=== PATIENT | male | born 1975 | race Caucasian/White ===

== ENCOUNTER 2018-11-04 12:39 | Outpatient (CLI) | payer BC ==
[~2018-11-04] VITALS: Ht 180.3 cm; Wt 116.7 kg
[2018-11-04] MEDS ORDERED: PANT40TA2 PO (12:55)
[2018-11-04 12:58] VITALS: BP 150/97
[2018-11-04 13:33] LABS: BASOPHILS % (AUTO) 0 % (0-10); EOSINOPHILS # (AUTO) 0.1 10^3/uL (0.0-0.3); EOSINOPHILS % (AUTO) 1 % (0-10); HEMATOCRIT 45 % (40-54); HEMOGLOBIN 15.3 G/DL (13.3-17.7); LYMPHOCYTES # (AUTO) 2.1 X 10^3 (1.0-4.0); LYMPHOCYTES % (AUTO) 21 % (12-44); MEAN CORPUSCULAR HEMOGLOBIN 32 PG (25-34); MEAN CORPUSCULAR HGB CONC 34 G/DL (32-36); MEAN CORPUSCULAR VOLUME 94 FL (80-99); MEAN PLATELET VOLUME 11.5 FL (7.4-10.4); MONOCYTES # (AUTO) 0.8 X 10^3 (0.0-1.0); MONOCYTES % (AUTO) 8 % (0-12); NEUTROPHILS # (AUTO) 6.8 X 10^3 (1.8-7.8); NEUTROPHILS % (AUTO) 69 % (42-75); PLATELET COUNT 264 10^3/uL (130-400); RED BLOOD COUNT 4.79 10^6/uL (4.35-5.85); RED CELL DISTRIBUTION WIDTH 13.3 % (10.0-14.5); WHITE BLOOD COUNT 9.8 10^3/uL (4.3-11.0)
[2018-11-04 13:50] LABS: BUN/CREATININE RATIO 11; CALCIUM 9.4 MG/DL (8.5-10.1); CARBON DIOXIDE 21 MMOL/L (21-32); CHLORIDE 106 MMOL/L (98-107); GFR ESTIMATED > 60; GLUCOSE 87 MG/DL (70-105); POTASSIUM 3.7 MMOL/L (3.6-5.0); SODIUM 138 MMOL/L (135-145)
== END 2018-11-04 15:00 | disposition home or self-care (01) ==
LOC: PREOP 12:39
PROVIDERS: ATTEND Otolaryngology Otolaryngology/Facial Plastic Surgery
DX: Z01.812 Encounter for preprocedural laboratory examination (principal); Z11.2 Encounter for screening for other bacterial diseases; J34.89 Other specified disorders of nose and nasal sinuses
CPT/HCPCS: 36415; 80048; 85025; 87081; 93005

== ENCOUNTER 2018-11-11 09:10 | Day surgery (SDC) | payer BC ==
[~2018-11-11] VITALS: Ht 180.3 cm; Wt 116.7 kg
[~2018-11-11 09:10] MED LIST: PANT40TA2 PO
[2018-11-11 09:25] VITALS: BP 148/96
[2018-11-11] MEDS: LACTATED RINGERS 1,000 ML IV PRN ×2 (10:30→14:50)
--- NOTE | 2018-11-11 11:36 | Progress Note-Pre Operative ---
Pre-Operative Progress Note H&P Reviewed The H&P was reviewed, patient examined and no changes noted. Date Seen by Provider: Nov 11, 2018 Time Seen by Provider: 11: Date H&P Reviewed: Nov 11, 2018 Time H&P Reviewed: :30 Pre-Operative Diagnosis: Deviated Nasal Septum, Bilat hyper of Inf Turbs TRENTON UNGER MD Nov 11, 2018 11:36
[2018-11-11] MEDS ORDERED: PHENYLEPHRINE 0.5% NASAL SPR (NEO-SYNEPHRINE) REG ONE (11:38)
[2018-11-11] MEDS ORDERED: COCAINE HCL 4% 2 ML SYR ONE (11:38)
[2018-11-11] MEDS ORDERED: LIDOCAINE/EPI 1%-1:100,000 (XYLOCAINE) 20ML ONE ×2 (11:38→11:42)
[2018-11-11] MEDS ORDERED: BSS 15 ML ONE (11:38)
[2018-11-11] MEDS ORDERED: DEXAMETHASONE 10 MG/ML (DECADRON) 1 ML VIAL ONE (12:30)
[2018-11-11] MEDS ORDERED: proPOfol 200 MG/20 ML (DIPRIVAN) VIAL IV ONE (12:30)
[2018-11-11] MEDS ORDERED: ROCURONIUM 10 MG/ML 5 ML SYRINGE IV ONE (12:30)
[2018-11-11] MEDS ORDERED: SEVOFLURANE (ULTANE) 15 ML INHAL SOLN ONE (12:30)
[2018-11-11] MEDS ORDERED: LIDOCAINE PF 2% 5 ML (XYLOCAINE) VIAL ONE (12:30)
[2018-11-11] MEDS ORDERED: ONDANSETRON 4 MG/2 ML (SDV) Z0FRAN ONE (12:30)
[2018-11-11] MEDS ORDERED: fentaNYL INJECTION 100 MCG/2 ML AMP ONE (12:31)
[2018-11-11] MEDS ORDERED: MIDAZOLAM 2 MG/2 ML (VERSED) VIAL ONE (12:31)
[2018-11-11] MEDS ORDERED: GLYCOPYRROLATE 0.2 MG/ML (ROBINUL) 2 ML VIAL ONE (13:38)
[2018-11-11] MEDS ORDERED: NEOSTIGMINE 1 MG/ML 5 ML SYRINGE ONE (13:38)
[2018-11-11] MEDS ORDERED: D5 1/2 NS W/KCL 20 MEQ/L 1,000 ML IV SCH (13:50)
--- NOTE | 2018-11-11 13:50 | Progress Note-Post Operative ---
Post-Operative Progess Note Surgeon (s)/Mechanical Test Engineer (s) Surgeon TRENTON UNGER MD Mechanical Test Engineer n/a Pre-Operative Diagnosis Deviated Nasal Septum, Bilat hyper of Inf Turbs Post-Operative Diagnosis same Post-Op Procedure Note Date of Procedure: Nov 11, 2018 Name of Procedure Performed: Nasal Septoplasty Description & Findings Description and Findings: n/a Anesthesia Type get Estimated Blood Loss minimal Packing none. Specimen(s) collected/removed nasal septum TRENTON UNGER MD Nov 11, 2018 13:50
[2018-11-11] MEDS ORDERED: ACETAMINOPHEN 325 MG TABLET PO PRN (14:00)
[2018-11-11] MEDS ORDERED: PROMETHAZINE INJ 25 MG/ML (PHENERGAN) AMP IVP ONE (14:00)
[2018-11-11] MEDS ORDERED: HYDROmorphone 2 MG/ML VIAL (DILAUDID) IV ONE (14:00)
[2018-11-11] MEDS ORDERED: HYDROcodone/APAP 5 MG/325 MG (LORTAB) TAB PO PRN (14:00)
[2018-11-11] MEDS ORDERED: PROMETHAZINE INJ 25 MG/ML (PHENERGAN) AMP IVP PRN (14:00)
[2018-11-11] MEDS ORDERED: morphine INJ 10 MG/ML 1ML (SYR OR VIAL) IVP ONE (14:00)
[2018-11-11] MEDS ORDERED: MEPERIDINE (DEMEROL) INJ 50 MG/ML IVP ONE (14:00)
[2018-11-11] MEDS ORDERED: ONDANSETRON 4 MG/2 ML (SDV) Z0FRAN IVP PRN (14:00)
[2018-11-11] MEDS ORDERED: LACTATED RINGERS 1,000 ML IV ONE (14:29)
--- NOTE | 2018-11-11 14:35 | Anesthesia-General Post-Op ---
General Patient Condition Mental Status/LOC: Same as Preop Cardiovascular: Satisfactory Nausea/Vomiting: Absent Respiratory: Satisfactory Pain: Controlled Complications: Absent Post Op Complications Complications None Follow Up Care/Instructions Patient Instructions None needed. Anesthesia/Patient Condition Patient Condition Patient is doing well, no complaints, stable vital signs, no apparent adverse anesthesia problems. No complications reported per nursing. [place] [facility] Yes AFSHIN WHITE CRNA Nov 11, 2018 14:35
[2018-11-11 14:55] VITALS: BP 136/87
[2018-11-11] MEDS ORDERED: AMOX500T2 PO (15:15)
[2018-11-11] MEDS ORDERED: HYDR-3812 PO (15:15)
[2018-11-11 15:25] VITALS: BP 130/86
[2018-11-11 15:55] VITALS: BP 138/86
== END 2018-11-11 15:55 | disposition home or self-care (01) ==
LOC: SDC 09:10
PROVIDERS: ATTEND Otolaryngology Otolaryngology/Facial Plastic Surgery
DX: J34.2 Deviated nasal septum (principal); J34.3 Hypertrophy of nasal turbinates; G47.33 Obstructive sleep apnea (adult) (pediatric); K21.9 Gastro-esophageal reflux disease without esophagitis; E66.9 Obesity, unspecified; Z68.35 Body mass index [BMI] 35.0-35.9, adult

== ENCOUNTER 2020-01-04 09:53 | Emergency (ER) | payer BC ==
[~2020-01-04] VITALS: Ht 180 cm; Wt 127.0 kg
[~2020-01-04 09:53] MED LIST changes: +AMOX500T2 PO; +HYDR-3812 PO
[2020-01-04 10:15] LABS: BASOPHILS % (AUTO) 0 % (0-10); EOSINOPHILS # (AUTO) 0.1 10^3/uL (0.0-0.3); EOSINOPHILS % (AUTO) 1 % (0-10); HEMATOCRIT 47 % (40-54); LYMPHOCYTES # (AUTO) 2.8 X 10^3 (1.0-4.0); LYMPHOCYTES % (AUTO) 27 % (12-44); MEAN CORPUSCULAR HEMOGLOBIN 32 PG (25-34); MEAN CORPUSCULAR HGB CONC 34 G/DL (32-36); MEAN CORPUSCULAR VOLUME 92 FL (80-99); MEAN PLATELET VOLUME 11.4 FL (7.4-10.4); MONOCYTES # (AUTO) 0.9 X 10^3 (0.0-1.0); MONOCYTES % (AUTO) 8 % (0-12); NEUTROPHILS # (AUTO) 6.6 X 10^3 (1.8-7.8); NEUTROPHILS % (AUTO) 63 % (42-75); PLATELET COUNT 263 10^3/uL (130-400); RED CELL DISTRIBUTION WIDTH 12.8 % (10.0-14.5); WHITE BLOOD COUNT 10.4 10^3/uL (4.3-11.0)
[2020-01-04] MEDS ORDERED: ASPIRIN 81 MG CHEW (CHILDREN'S ASA) PO ONE (10:15)
[2020-01-04 10:28] LABS: INR 0.9 (0.8-1.4); PROTHROMBIN TIME PATIENT 12.7 SEC (12.2-14.7)
--- NOTE | 2020-01-04 10:35 | Diagnostic Imaging Report ---
Indication: Chest pain Portable chest 10:29 AM Heart size and pulmonary vascularity are normal. Lungs are clear. There are no effusions or pneumothoraces. IMPRESSION: Negative chest Dictated by: Dictated on workstation # [id number]
[2020-01-04 10:36] LABS: ALANINE AMINOTRANSFERASE 75 U/L (0-55); ALBUMIN 4.3 GM/DL (3.2-4.5); ALKALINE PHOSPHATASE 71 U/L (40-136); BILIRUBIN,TOTAL 0.3 MG/DL (0.1-1.0); BUN/CREATININE RATIO 11; CALCIUM 9.3 MG/DL (8.5-10.1); CARBON DIOXIDE 26 MMOL/L (21-32); CHLORIDE 102 MMOL/L (98-107); CREATININE SERUM 1.14 MG/DL (0.60-1.30); GFR ESTIMATED > 60; GLUCOSE 117 MG/DL (70-105); POTASSIUM 3.7 MMOL/L (3.6-5.0); SODIUM 138 MMOL/L (135-145); TOTAL PROTEIN 7.7 GM/DL (6.4-8.2)
--- NOTE | 2020-01-04 10:41 | ED Chest Pain ---
General Chief Complaint: Chest Pain Stated Complaint: CHEST PAIN Nursing Triage Note: ARRIVED VIA AMB TO TRIAGE WITH COMPLAINTS OF CHEST PAIN STARTING THIS AM. STATE HE FELT HIS HEART POUNDING. VERBALIZES IT HAS BEEN OFF AND ON FOR 2 WEEKS ET WENT TO [facility] PRIOR TO TODAY AND HAD A NEG EKG. DENIES CHEST PAIN AT THIS TIME. Nursing Sepsis Screen: No Definite Risk Source: patient Exam Limitations: no limitations (JERMAINE VELÁZQUEZ MEDICAL STUDENT) History of Present Illness Date Seen by Provider: Jan 04, 2020 Time Seen by Provider: 10:20 Initial Comments Pt is 44 yo M who ambulates to the ED c/o squeezing CP that started about an hour before arrival. He is not currently having pain. He states the pain radiates half way across his left chest and he can feel his heartbeat with the squeezing sensation. He has had the pain off and on for several weeks and was evaluated at the [facility] two days ago on Wednesday. He had a negative EKG there and was scheduled for follow with Dr. Villa on 01/15/20. They also noted elevated BP at the walk-in clinic. He has was not placed on BP medication but has been checking his blood pressures at home; highest was 172/96 this morning. He has not taken anything for the pain. The CP seems to come on after eating. It does not seem to be affected by physical activity or movement. Although he doesn't smoke or have chronic medical problems he has extensive family history of cardiovascular disease on both sides of his family. 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 Timing/Duration: 1 hour, resolved prior to arrival Severity/Quality: moderate, other (squeezing) Location: substernal Radiation: other (left chest) Activities at Onset: other (post prandial) Prior CP/Workup: no prior cardiac workup Modifying Factors: worse with breathing, worse with coughing; improves with eating; worse with movement ASA po STAFF PHYSICIAN: No NTG SL STAFF PHYSICIAN: No Associated Symptoms: No diaphoresis, No dizziness; edema (has noted increased LE edema at end of day); No nausea/vomiting, No shortness of breath (JERMAINE VELÁZQUEZ MEDICAL STUDENT) Severity/Quality: moderate, pressure, other (squeezing) Location: substernal Radiation: other (left chest) ASA po STAFF PHYSICIAN: No NTG SL STAFF PHYSICIAN: No (VEGA,KEAGAN D MD) Allergies and Home Medications Allergies Coded Allergies: No Known Drug Allergies (Unverified , 11/04/18) Home Medications No Active Prescriptions or Reported Meds Patient Home Medication List Home Medication List Reviewed: Yes (JERMAINE VELÁZQUEZ) Home Medication List Reviewed: Yes (KEAGAN FERRARI MD) Review of Systems Review of Systems Constitutional: No chills, No diaphoresis, No dizziness, No weakness EENTM: No Symptoms Reported Respiratory: Denies Cough, Denies Shortness of Air Cardiovascular: Chest Pain, Edema; Denies Palpitations Gastrointestinal: Denies Abdominal Pain, Denies Diarrhea, Denies Nausea, Denies Vomiting Genitourinary: No Symptoms Reported Musculoskeletal: No muscle pain, No muscle stiffness Skin: no symptoms reported Psychiatric/Neurological: No Symptoms Reported Endocrine: No Symptoms Reported Hematologic/Lymphatic: No Symptoms Reported (JERMAINE VELÁZQUEZ) All Other Systems Reviewed Negative Unless Noted: Yes (KEAGAN FERRARI MD) Past Kfrgwvn-Egryqx-Dplnwx Hx Past Med/Social Hx: Reviewed Nursing Past Med/Soc Hx (JERMAINE VELÁZQUEZ) Past Med/Social Hx: Reviewed Nursing Past Med/Soc Hx (KEAGAN FERRARI MD) Patient Social History Alcohol Use: Denies Use Recreational Drug Use: No Smoking Status: Never a Smoker Recent Foreign Travel: No Contact w/Someone Who Travel: No Recent Infectious Disease Expo: No Recent Hopitalizations: No (JERMAINE VELÁZQUEZ) Immunizations Up To Date Tetanus Booster (TDap): Unknown PED Vaccines UTD: No (JERMAINE VELÁZQUEZ) Seasonal Allergies Seasonal Allergies: No (JERMAINE VELÁZQUEZ) Past Medical History Surgeries: Yes Gallbladder, Nose, Orthopedic Respiratory: Yes Sleep Apnea Currently Using CPAP: Yes Cardiac: Yes Hypertension Neurological: No Reproductive Disorders: No Sexually Transmitted Disease: No HIV/AIDS: No Gastrointestinal: Yes Gastroesophageal Reflux Musculoskeletal: No Endocrine: No HEENT: No Loss of Vision: Denies Hearing Impairment: Denies Cancer: No Psychosocial: No Integumentary: No Blood Disorders: No Adverse Reaction/Blood Tranf: No (N/A) (JERMAINE VELÁZQUEZ) Family Medical History Reviewed Nursing Family Hx (KEAGAN FERRARI MD) Cardiovascular disease 19 FATHER, Onset:50's - 60 19 MOTHER, Onset:50's - 60 Heart Disease, Hypertension, Stroke (JERMAINE VELÁZQUEZ MEDICAL STUDENT) Physical Exam Vital Signs Vital Signs - First Documented 01/04/20 09:53 Temp 37.2 Pulse 81 Resp 16 B/P (MAP) 200/117 (144) Pulse Ox 97 O2 Delivery Room Air (KEAGAN FERRARI MD) Vital Signs Capillary Refill : Less Than 3 Seconds (JERMAINE VELÁZQUEZ MEDICAL STUDENT) Height, Weight, BMI Height: 5'11.00" Weight: 257lbs. 4.0oz. 116.384989yj; 39.00 BMI Method: General Appearance: No Apparent Distress, WD/WN HEENT: PERRL/EOMI, Pharynx Normal, Moist Mucous Membranes; No Pale Conjunctivae (L), No Pale Conjunctivae (R) Neck: Full Range of Motion, Normal Inspection, Non Tender, Supple Respiratory: Chest Non Tender, Lungs Clear, Normal Breath Sounds, No Accessory Muscle Use, No Respiratory Distress Cardiovascular: Regular Rate, Rhythm, No Edema, No Gallop, No JVD, No Murmur, Normal Peripheral Pulses Gastrointestinal: Normal Bowel Sounds, Non Tender, Soft Extremity: Normal Capillary Refill, Normal Inspection, Non Tender Neurologic/Psychiatric: Alert, Oriented x3, Normal Mood/Affect Skin: Normal Color, Warm/Dry Lymphatic: No Adenopathy (JERMAINE VELÁZQUEZ MEDICAL STUDENT) Respiratory: Lungs Clear, Normal Breath Sounds Cardiovascular: Regular Rate, Rhythm, No Murmur Gastrointestinal: Non Tender, Soft Neurologic/Psychiatric: Alert, Oriented x3 (KEAGAN FERRARI MD) Progress/Results/Core Measures Results/Orders Lab Results Laboratory Tests Test 01/04/20 10:03 01/04/20 12:16 Range/Units White Blood Count 10.4 4.3-11.0 10^3/uL Red Blood Count 5.04 4.35-5.85 10^6/uL Hemoglobin 16.0 13.3-17.7 G/DL Hematocrit 47 40-54 % Mean Corpuscular Volume 92 80-99 FL Mean Corpuscular Hemoglobin 32 25-34 PG Mean Corpuscular Hemoglobin Concent 34 32-36 G/DL Red Cell Distribution Width 12.8 10.0-14.5 % Platelet Count 263 130-400 10^3/uL Mean Platelet Volume 11.4 H 7.4-10.4 FL Neutrophils (%) (Auto) 63 42-75 % Lymphocytes (%) (Auto) 27 12-44 % Monocytes (%) (Auto) 8 0-12 % Eosinophils (%) (Auto) 1 0-10 % Basophils (%) (Auto) 0 0-10 % Neutrophils # (Auto) 6.6 1.8-7.8 X 10^3 Lymphocytes # (Auto) 2.8 1.0-4.0 X 10^3 Monocytes # (Auto) 0.9 0.0-1.0 X 10^3 Eosinophils # (Auto) 0.1 0.0-0.3 10^3/uL Basophils # (Auto) 0.0 0.0-0.1 10^3/uL Prothrombin Time 12.7 12.2-14.7 SEC INR Comment 0.9 0.8-1.4 Activated Partial Thromboplast Time 31 24-35 SEC D-Dimer 0.33 0.00-0.49 UG/ML Sodium Level 138 135-145 MMOL/L Potassium Level 3.7 3.6-5.0 MMOL/L Chloride Level 102 98-107 MMOL/L Carbon Dioxide Level 26 21-32 MMOL/L Anion Gap 10 5-14 MMOL/L Blood Urea Nitrogen 13 7-18 MG/DL Creatinine 1.14 0.60-1.30 MG/DL Estimat Glomerular Filtration Rate > 60 BUN/Creatinine Ratio 11 Glucose Level 117 H 70-105 MG/DL Calcium Level 9.3 8.5-10.1 MG/DL Corrected Calcium 9.1 8.5-10.1 MG/DL Magnesium Level 2.0 1.6-2.4 MG/DL Total Bilirubin 0.3 0.1-1.0 MG/DL Aspartate Amino Transf (AST/SGOT) 34 5-34 U/L Alanine Aminotransferase (ALT/SGPT) 75 H 0-55 U/L Alkaline Phosphatase 71 40-136 U/L Myoglobin 55.0 10.0-92.0 NG/ML Troponin I < 0.028 < 0.028 <0.028 NG/ML Total Protein 7.7 6.4-8.2 GM/DL Albumin 4.3 3.2-4.5 GM/DL Lipase 18 8-78 U/L (KEAGAN FERRARI MD) My Orders Orders - KEAGAN FERRARI MD Ekg Tracing (01/04/20 09:55) Cbc With Automated Diff (01/04/20 10:05) Magnesium (01/04/20 10:05) Chest 1 View, Ap/Pa Only (01/04/20 10:05) Ekg Tracing (01/04/20 10:05) Comprehensive Metabolic Panel (01/04/20 10:05) Myoglobin Serum (01/04/20 10:05) Protime With Inr (01/04/20 10:05) Partial Thromboplastin Time (01/04/20 10:05) O2 (01/04/20 10:05) Monitor-Rhythm Ecg Trace Only (01/04/20 10:05) Lipid Panel (01/05/20 06:00) Ed Iv/Invasive Line Start (01/04/20 10:05) Fibrin Degradation Products (01/04/20 10:05) Troponin I (01/04/20 10:05) Aspirin Chewable Tablet (Baby Aspirin Ch (01/04/20 10:15) Metoprolol Succinate (Xl) Tab (Toprol Xl (01/04/20 10:45) Lipase (01/04/20 10:34) Troponin I (01/04/20 12:02) Lisinopril Tablet (Zestril Tablet) (01/04/20 13:15) (KEAGAN FERRARI MD) Medications Given in ED Current Medications Medications Dose Ordered Sig/Maira Route Start Time Stop Time Status Last Admin Dose Admin Aspirin 324 mg ONCE ONCE PO 01/04/20 10:15 01/04/20 10:16 DC 01/04/20 10:15 324 MG (KEAGAN FERRARI MD) Vital Signs/I&O 01/04/20 09:53 Temp 37.2 Pulse 81 Resp 16 B/P (MAP) 200/117 (144) Pulse Ox 97 O2 Delivery Room Air (KEAGAN FERRARI MD) Blood Pressure Mean: 144 Progress Progress Note : Progress Note I have seen and evaluated the patient and agree with above except as indicated. Have directed the plan of care. Patient is here with central chest pain that started about an hour ago. He describes it as a pressure. He's had intermittent pain over the last several weeks. Blood pressure noted to be high and this is been high in the office to but not to this level. Currently he is chest pain- free and has been since arrival. Denies nausea, vomiting, sweating or weakness. Has had some swelling in his legs. Evaluation as above. Plan is for chest pain protocol plus aspirin 324 mg by mouth. We will also initiate Toprol-XL 50 mg by mouth. Monitor patient. 1310: Repeat blood pressure 160s over 100s. I did discuss the case with Dr. Finnegan. We will initiate lisinopril 10 mg by mouth now and continue the outpatient. He would like to see him early next week for recheck and for further evaluation and I think this is reasonable. Patient has been and has remained chest pain-free throughout the visit. Discharged home with return precautions. Patient verbalize understanding instructions and agreement with plan. (KEAGAN FERRARI MD) Initial ECG Impression Date: Jan 04, 2020 Initial ECG Impression Time: 09:59 Initial ECG Rate: 85 Initial ECG Rhythm: Normal Sinus Initial ECG Comparisson: Unchanged (11/04/18) Comment Sinus rhythm with PAC and PVC. Normal axis. No evidence of ST elevation NV. Interpreted by me. (KEAGAN FERRARI MD) Diagnostic Imaging Diagonstic Imaging: Xray Plain Films/CT/US/NM/MRI: chest Comments [facility], [place] NAME: ARISTIDES QUIROZ [facility] REC#: [id number] PT STATUS: REG ER : 1975 PHYSICIAN: KEAGAN FERRARI MD ADMIT DATE: 01/04/20/ER Signed Date of Exam:01/04/20 CHEST 1 VIEW, AP/PA ONLY Indication: Chest pain Portable chest 10:29 AM Heart size and pulmonary vascularity are normal. Lungs are clear. There are no effusions or pneumothoraces. IMPRESSION: Negative chest Dictated by: Dictated on workstation # [id number] Dict: 01/04/20 1033 Trans: 01/04/20 1034 [id number] Interpreted by: KEAGAN GREEN MD Electronically signed by: KEAGAN GREEN MD 01/04/20 1034 (KEAGAN FERRARI MD) Departure Impression Primary Impression: Chest pain Qualified Codes: R07.9 - Chest pain, unspecified Additional Impression: Uncontrolled hypertension Disposition: 01 HOME, SELF-CARE Condition: Stable Departure-Patient Inst. Decision time for Depature: 13:17 (KEAGAN FERRARI MD) Referrals: NO,LOCAL PHYSICIAN (PCP) Primary Care Physician MARIO LIU (Family) Primary Care Physician Patient Instructions: Chest Pain (DC), High Blood Pressure (DC) Add. Discharge Instructions: All discharge instructions reviewed with patient and/or family. Voiced understanding. Take medications as directed. Follow-up with Dr. Finnegan early next week. Call his office today for appointment. You should take and record your blood pressure twice daily and take that log with you to the doctor appointment. Return for worse pain, fever, vomiting, weakness, breathing problems or other concerns as needed Scripts Metoprolol Tartrate (Metoprolol Tartrate) 50 Mg Tablet 50 MG PO BID for 30 Days, #60 TAB Prov: KEAGAN FERRARI MD 01/04/20 Lisinopril (Lisinopril) 10 Mg Tablet 10 MG PO DAILY, #30 TAB Prov: KEAGAN FERRARI MD 01/04/20 Copy Copies To 1: HENRY BLANCO DO Copies To 2: JOSELUIS FINNEGAN MD, [place] MEDICAL STUDENT Jan 04, 2020 10:41 KEAGAN FERRARI MD Jan 04, 2020 11:10
[2020-01-04] MEDS ORDERED: meTOproloL SUCCINATE 50 MG (TOPROL XL) TAB PO SCH (10:45)
--- NOTE | 2020-01-04 12:17 | NUR ---
REPEAT TROPONIN DRAWN AT THIS TIME AND SENT TO LAB
[2020-01-04] MEDS ORDERED: lisINopril 10 MG (PRINIVIL) TABLET PO ONE (13:15)
[2020-01-04] MEDS ORDERED: METO50TA15 PO (13:20)
[2020-01-04] MEDS ORDERED: LISI10TA2 PO (13:20)
--- NOTE | 2020-01-04 13:50 | NUR ---
pt denies any needs or c/o at this time, pt shows no s/s of distress, vs assessed and stable, will continue to monitor
[2020-01-04 14:18] VITALS: BP 168/115
== END 2020-01-04 14:18 | disposition home or self-care (01) ==
LOC: EDUNIT# 09:53 → ER 09:54
DX: R07.2 Precordial pain (principal); I10 Essential (primary) hypertension; G47.30 Sleep apnea, unspecified; Z99.89 Dependence on other enabling machines and devices; Z82.49 Family history of ischemic heart disease and other diseases of the circulatory system
CPT/HCPCS: 36415; 71045; 80053; 83690; 83735; 83874; 84484; 85025; 85379; 85610; 85730; 93005; 93041

== ENCOUNTER → 2020-01-23 | Outpatient (CLI) | payer BC ==
[~2020-01-23] MED LIST changes: +ACHD5005 PO; -HYDR-3812 PO; +LISI10TA2 PO; +METO50TA15 PO
== END ==
LOC: CARD 09:18
PROVIDERS: ATTEND Internal Medicine Cardiovascular Disease
DX: I10 Essential (primary) hypertension (principal); E66.9 Obesity, unspecified; G47.33 Obstructive sleep apnea (adult) (pediatric); I34.0 Nonrheumatic mitral (valve) insufficiency
CPT/HCPCS: 93306

== ENCOUNTER → 2020-01-24 | Outpatient (CLI) | payer BC ==
[~2020-01-24] VITALS: Ht 180 cm; Wt 125.0 kg
[~2020-01-24] MED LIST changes: +CATHETER FLUSH 10 ML SYR IV PRN
[2020-01-24 09:54] VITALS: BP 176/90
--- NOTE | 2020-01-24 15:32 | STRESS TEST ---
DATE OF SERVICE: 01/24/2020 EXERCISE MYOVIEW STRESS TEST REPORT REFERRING PHYSICIAN: Gina Lincoln Baseline heart rate is 66. Baseline blood pressure 141/90. Baseline EKG is sinus rhythm with no ischemic changes. In summary, the patient was injected with 10.78 mCi of technetium-99 Myoview and the resting images were obtained. Then, the patient started exercising with a baseline heart rate, blood pressure and EKG mentioned above. The patient was able to exercise for 7 minutes 40 seconds on a standard Nicolás protocol. With peak exercise level, EKG was showing nondiagnostic changes. During recovery, heart rate and blood pressure returned to baseline. EKG returned to baseline. The resting and stress images were reviewed and compared in the short axis, horizontal long axis, and vertical long axis views. Review of the images showed good radiotracer uptake with no significant ischemia or infarction. SSS is 0. TID value 0.84. On the gated images, the left ventricle appeared to be in normal size with normal contractility. Calculated ejection fraction is 59%. CONCLUSION: 1. Good exercise tolerance for 7 minutes 40 seconds on a standard Nicolás protocol, total of 9.3 METS achieving 90% of maximum expected heart rate. 2. Hypertensive response to exercise with peak blood pressure 212/104 returned to baseline during recovery. 3. Nondiagnostic EKG changes with exercise returned to baseline during recovery. 4. No ischemia or infarction on SPECT images. 5. Normal left ventricular size with normal contractility. Calculated ejection fraction 59%. Job ID: [id number] DocumentID: [id number] Dictated Date: 01/24/2020 14:49:51 Last Picker Date: 01/24/2020 15:31:01 Dictated By: JOSELUIS SNOW MD
== END ==
LOC: CARD 07:53
PROVIDERS: ATTEND Internal Medicine Cardiovascular Disease
DX: E66.9 Obesity, unspecified (principal); I10 Essential (primary) hypertension; G47.33 Obstructive sleep apnea (adult) (pediatric); R07.89 Other chest pain; R06.09 Other forms of dyspnea; R00.2 Palpitations
CPT/HCPCS: 78452; 93017

== ENCOUNTER 2023-02-05 11:23 | Emergency (ER) | payer BC ==
[~2023-02-05] VITALS: Ht 180 cm; Wt 115.0 kg
[~2023-02-05 11:23] MED LIST changes: -CATHETER FLUSH 10 ML SYR IV PRN; -LISI10TA2 PO; +LISI10TA25 PO
[2023-02-05 11:59] LABS: BASOPHILS % (AUTO) 1 % (0-10); EOSINOPHILS # (AUTO) 0.3 10^3/uL (0.0-0.3); EOSINOPHILS % (AUTO) 4 % (0-10); HEMATOCRIT 48 % (40-54); HEMOGLOBIN 16.6 g/dL (13.3-17.7); LYMPHOCYTES # (AUTO) 2.1 10^3/uL (1.0-4.0); LYMPHOCYTES % (AUTO) 25 % (12-44); MEAN CORPUSCULAR HEMOGLOBIN 32 pg (25-34); MEAN CORPUSCULAR HGB CONC 35 g/dL (32-36); MEAN CORPUSCULAR VOLUME 92 fL (80-99); MEAN PLATELET VOLUME 11.4 fL (9.0-12.2); MONOCYTES # (AUTO) 0.7 10^3/uL (0.0-1.0); MONOCYTES % (AUTO) 9 % (0-12); NEUTROPHILS # (AUTO) 5.1 10^3/uL (1.8-7.8); NEUTROPHILS % (AUTO) 62 % (42-75); PLATELET COUNT 263 10^3/uL (130-400); WHITE BLOOD COUNT 8.2 10^3/uL (4.3-11.0)
--- NOTE | 2023-02-05 11:59 | ED Cardiac General ---
History of Present Illness General Chief Complaint: Cardiac/General Problems Stated Complaint: HIGH BLOOD PRESSURE Nursing Triage Note: PT AMB TO RM 6 PT CO OF ELEVATED B/P AND SL CHEST PAIN SINCE WEDNESDAY. RATES C/P 01/22. PT STATES HAS NOT TAKEN B/P MEDS FOR A COUPLE YEARS Source: patient Exam Limitations: no limitations History of Present Illness Date Seen by Provider: Feb 05, 2023 Time Seen by Provider: 11:38 Initial Comments 47-year-old male presents to the ED with complaints of high blood pressure. States that this morning he woke up with mild chest pressure around 8 AM. Stated that he just felt "blah." Reports he checked his blood pressure this morning and it was approximately 185/127. Denies history of hypertension. States that on Wednesday he woke up with severe chest pain around 3:30 in the m orning. Reports that subsided, but the pain started again this morning at 8 AM, but states it is much less severe. Denies fevers, abdominal pain, nausea, vomiting, diarrhea. He reports occasional blurry vision, denies blurry vision now. Denies headache, denies dizziness. Reports shortness of breath, but states this is normal for him and has not changed. States he has had several work-ups regarding his shortness of air. States he used to be treated for high blood pressure, lost his job approximately 3 years ago and did not follow-up with a primary care provider. He states that he does not check his blood pressure at home, and it has been normal around 120/80 until recently. He does not take any medications currently. Allergies and Home Medications Allergies Coded Allergies: No Known Drug Allergies (Unverified , 11/04/18) Patient Home Medication List Home Medication List Reviewed: Yes Lisinopril (Lisinopril) 10 Mg Tablet, 10 MG PO DAILY Prescribed by: KEAGAN FERRARI on 01/04/20 1320 Losartan Potassium (Losartan Potassium) 100 Mg Tablet, 100 MG PO DAILY Prescribed by: Azra Gallegos on 02/05/231818 Metoprolol Succinate (Metoprolol Succinate) 25 Mg Tab.er.24h, 25 MG PO DAILY Prescribed by: Azra Gallegos on 02/05/231818 Metoprolol Tartrate (Metoprolol Tartrate) 50 Mg Tablet, 50 MG PO BID Prescribed by: KEAGAN FERRARI on 01/04/20 1320 Review of Systems Review of Systems Constitutional: see HPI Past Kocegpn-Ilkxpj-[id number] Hx Patient Social History Tobacco Use?: No Substance use?: No Alcohol Use?: No Pt feels they are or have been: No Immunizations Up To Date Tetanus Booster (TDap): Unknown PED Vaccines UTD: No Influenza Vaccine Up-to-Date: No; Not Current Seasonal Allergies Seasonal Allergies: No Past Medical History Surgery/Hospitalization HX: GALL BLADDER, CARPAL TUNNEL Surgeries: Yes Gallbladder, Nose, Orthopedic Respiratory: Yes Sleep Apnea Currently Using CPAP: Yes Cardiac: Yes Hypertension Neurological: No Reproductive Disorders: No Sexually Transmitted Disease: No HIV/AIDS: No Gastrointestinal: Yes Gastroesophageal Reflux Musculoskeletal: No Endocrine: No HEENT: No Loss of Vision: Denies Hearing Impairment: Denies Cancer: No Psychosocial: No Integumentary: No Blood Disorders: No Adverse Reaction/Blood Tranf: No (N/A) Family Medical History Cardiovascular disease 19 FATHER, Onset:50's - 60 19 MOTHER, Onset:50's - 60 Heart Disease, Hypertension, Stroke Physical Exam Vital Signs Vital Signs - First Documented 02/05/23 02/05/23 11:30 13:00 Temp 36.7 Pulse 65 Resp 23 B/P (MAP) 200/116 (144) Pulse Ox 95 O2 Delivery Room Air Capillary Refill : Less Than 3 Seconds Height, Weight, BMI Height: 5'11.00" Weight: 257lbs. 4.0oz. [id number]; 35.00 BMI Method: General Appearance: No Apparent Distress, WD/WN Neck: Non Tender, Supple Respiratory: Chest Non Tender, Lungs Clear, Normal Breath Sounds, No Accessory Muscle Use, No Respiratory Distress Cardiovascular: Regular Rate, Rhythm, No Edema, No Gallop, No JVD, No Murmur, Normal Peripheral Pulses Extremity: Normal Inspection, Normal Range of Motion Neurologic/Psychiatric: Alert, No Motor/Sensory Deficits Skin: Normal Color, Warm/Dry Progress/Results/Core Measures Results/Orders Lab Results Laboratory Tests Test 02/05/23 11:45 Range/Units White Blood Count 8.2 4.3-11.0 10^3/uL Red Blood Count 5.19 4.30-5.52 10^6/uL Hemoglobin 16.6 13.3-17.7 g/dL Hematocrit 48 40-54 % Mean Corpuscular Volume 92 80-99 fL Mean Corpuscular Hemoglobin 32 25-34 pg Mean Corpuscular Hemoglobin Concent 35 32-36 g/dL Red Cell Distribution Width 12.5 10.0-14.5 % Platelet Count 263 130-400 10^3/uL Mean Platelet Volume 11.4 9.0-12.2 fL Immature Granulocyte % (Auto) 0 % Neutrophils (%) (Auto) 62 42-75 % Lymphocytes (%) (Auto) 25 12-44 % Monocytes (%) (Auto) 9 0-12 % Eosinophils (%) (Auto) 4 0-10 % Basophils (%) (Auto) 1 0-10 % Neutrophils # (Auto) 5.1 1.8-7.8 10^3/uL Lymphocytes # (Auto) 2.1 1.0-4.0 10^3/uL Monocytes # (Auto) 0.7 0.0-1.0 10^3/uL Eosinophils # (Auto) 0.3 0.0-0.3 10^3/uL Basophils # (Auto) 0.0 0.0-0.1 10^3/uL Immature Granulocyte # (Auto) 0.0 0.0-0.1 10^3/uL Prothrombin Time 13.2 12.2-14.7 SEC INR Comment 1.0 0.8-1.4 Activated Partial Thromboplast Time 34 24-35 SEC Sodium Level 139 135-145 MMOL/L Potassium Level 3.8 3.6-5.0 MMOL/L Chloride Level 104 98-107 MMOL/L Carbon Dioxide Level 28 21-32 MMOL/L Anion Gap 7 5-14 MMOL/L Blood Urea Nitrogen 9 7-18 MG/DL Creatinine 0.87 0.60-1.30 MG/DL Estimat Glomerular Filtration Rate 107 BUN/Creatinine Ratio 10 Glucose Level 132 H 70-105 MG/DL Calcium Level 9.2 8.5-10.1 MG/DL Corrected Calcium 9.2 8.5-10.1 MG/DL Magnesium Level 2.1 1.6-2.4 MG/DL Total Bilirubin 0.6 0.1-1.0 MG/DL Aspartate Amino Transf (AST/SGOT) 30 5-34 U/L Alanine Aminotransferase (ALT/SGPT) 54 0-55 U/L Alkaline Phosphatase 57 40-136 U/L Troponin I < 0.028 <0.028 NG/ML Total Protein 7.3 6.4-8.2 GM/DL Albumin 4.0 3.2-4.5 GM/DL My Orders Orders - AZRA GALLEGOS MIXER TENDER Cbc With Automated Diff (02/05/23 11:37) Magnesium (02/05/23 11:37) Chest 1 View, Ap/Pa Only (02/05/23 11:37) Ekg Tracing (02/05/23 11:37) Comprehensive Metabolic Panel (02/05/23 11:37) Protime With Inr (02/05/23 11:37) Partial Thromboplastin Time (02/05/23 11:37) Monitor-Rhythm Ecg Trace Only (02/05/23 11:37) Ed Iv/Invasive Line Start (02/05/23 11:37) Troponin I [place] (02/05/23 11:37) Ct Angio Neck W (02/05/23 13:35) Metoprolol Tartrate Injection (Lopressor (02/05/23 13:45) Iohexol Injection (Omnipaque 350 Mg/Ml 1 (02/05/23 14:45) Received Contrast (Hold Metformin- Contr (02/05/23 14:45) Ns (Ivpb) (Sodium Chloride 0.9% Ivpb Bag (02/05/23 14:45) Ct Angio Chest W(R/O Tad) (02/05/23 16:10) Ct Angio Chest W(R/O Tad) (02/05/23 ) Iohexol Injection (Omnipaque 350 Mg/Ml 1 (02/05/23 16:15) Ns (Ivpb) (Sodium Chloride 0.9% Ivpb Bag (02/05/23 16:15) Losartan Tablet (Cozaar Tablet) (02/05/23 17:30) Metoprolol Tartrate Injection (Lopressor (02/05/23 17:30) Medications Given in ED Current Medications Medications Dose Ordered Sig/Maira Route Start Time Stop Time Status Last Admin Dose Admin Iohexol 75 ml ONCE ONCE IV 02/05/23 14:45 02/05/23 14:46 DC 02/05/23 14:45 75 ML Iohexol 100 ml ONCE ONCE IV 02/05/23 16:15 02/05/23 16:16 DC 02/05/23 16:53 88 ML Losartan Potassium 100 mg ONCE ONCE PO 02/05/23 17:30 02/05/23 17:31 DC 02/05/23 17:32 100 MG Metoprolol Tartrate 5 mg ONCE ONCE IV 02/05/23 13:45 02/05/23 13:46 DC 02/05/23 14:21 5 MG Metoprolol Tartrate 5 mg ONCE ONCE IV 02/05/23 17:30 02/05/23 17:31 DC 02/05/23 17:32 5 MG Sodium Chloride 100 ml ONCE ONCE IV 02/05/23 14:45 02/05/23 14:46 DC 02/05/23 16:52 80 ML Sodium Chloride 100 ml ONCE ONCE IV 02/05/23 16:15 02/05/23 16:16 DC 02/05/23 16:53 70 ML Vital Signs/I&O 02/05/23 02/05/23 02/05/23 02/05/23 11:30 13:00 13:42 18:26 Temp 36.7 Pulse 65 68 66 64 Resp 23 20 28 26 B/P (MAP) 200/116 (144) 146/94 (111) 184/109 (134) 157/103 Pulse Ox 95 97 96 95 O2 Delivery Room Air Room Air Room Air Blood Pressure Mean: 144 Progress Progress Note : Time: 11:52 Progress Note Patient seen and evaluated, resting comfortably, no acute distress. Based on exam and symptoms, work-up initiated including CBC, CMP, coags, troponin, magnesium, EKG, chest x-ray. 1333 Labs and chest x-ray reviewed. CBC grossly normal. CMP grossly normal, glucose 132. Troponin negative. Coags normal. Chest x-ray negative. I called and spoke with Dr. Finnegan, luster repairer, who recommends CT angio neck and chest to rule out aortic dissection and subclavian stenosis. He recommends Lopressor 5 mg IV right now. If CT angio chest negative for aortic dissection, and blood pressure reduces with IV Lopressor, patient can be discharged on beta- shadi and an ARB or DOC. 1630 care delayed due to issue with ordering the CT angio chest. Order was finally fixed, patient was able to get scan completed. Currently waiting on result. CT angio of neck reviewed, negative for any abnormalities. 1719 CT angio of chest negative for aortic dissection or aneurysm. Heart is borderline enlarged. Fatty liver disease also noted. Results discussed with patient. Blood pressure continues to be elevated in both arms. Repeat dose of Lopressor ordered. 100 mg of losartan ordered. Will administer, and monitor patient. 1815 blood pressure improved. Will discharge patient this time. Patient is agreeable to discharge. Discharge instructions and return precautions provided. Initial ECG Impression Date: Feb 05, 2023 Initial ECG Impression Time: 11:39 Initial ECG Rate: 63 Initial ECG Rhythm: Normal Sinus Initial ECG Intervals: Normal Initial ECG Impression: Normal Initial ECG Comparisson: Unchanged Diagnostic Imaging Diagonstic Imaging: Xray Plain Films/CT/US/NM/MRI: chest Comments [facility], [place] NAME: ARISTIDES QUIROZ [facility] REC#: [id number] PT STATUS: REG ER : 1975 PHYSICIAN: AZRA GALLEGOS APRN ADMIT DATE: 02/05/23/ER Draft Date of Exam:02/05/23 CHEST 1 VIEW, AP/PA ONLY INDICATION: Hypertension and chest pain. Frontal chest obtained at 12:02 p.m. and compared with 01/04/2020 Heart and mediastinal silhouette are normal in appearance. The lungs are clear. There is no pneumothorax or pleural fluid. IMPRESSION: Negative chest. Dictated on workstation # [id number] Dict: 02/05/23 1201 Trans: 02/05/23 1206 [facility] [id number] Interpreted by: VALENTINA SMITH MD Electronically signed by: Diagonstic Imaging: CT (Angio) Plain Films/CT/US/NM/MRI: other (Neck) Comments [facility] [place], [place] NAME: ARISTIDES QUIROZ MED REC#: [id number] PT STATUS: REG ER : 1975 PHYSICIAN: AZRA GALLEGOS APRN ADMIT DATE: 02/05/23/ER Signed Date of Exam:02/05/23 CT ANGIO NECK W INDICATION: Chest pain. Asymmetric blood pressure, I am unclear which side is higher. FINDINGS: The visible aortic arch appeared normal. The branching pattern of the great vessels were normal. The bilateral subclavian arteries patent. The cervical and intradural vertebral arteries are patent. The bilateral common carotids patent. The carotid bulbs and bifurcations patent. The major external carotid branches are patent. The cervical internal carotid branches are patent. Images of the head are also included showing the intrathecal vertebral arteries and their primary branches patent. The basilar and bilateral WAREHOUSE RECORD CLERK segments are widely patent. The intracranial ICAs, the anterior and middle cerebral arteries as well as their primary branches are all patent. No large vessel occlusion, thrombus, aneurysm or vascular malformation. IMPRESSION: Unremarkable CT angiographic study of the neck and head Dictated by: Dictated on workstation # [id number] Dict: 02/05/23 1504 Trans: 02/05/23 1648 [id number] Interpreted by: ARISTIDES PRABHAKAR Electronically signed by: ARISTIDES PRABHAKAR 02/05/23 2660 Diagonstic Imaging: CT (angio) Plain Films/CT/US/NM/MRI: chest Comments [facility], [place] NAME: RICHIEARISTIDES Meneses [facility] REC#: [id number] PT STATUS: REG ER : 1975 PHYSICIAN: AZRA GALLEGOS APRN ADMIT DATE: 02/05/23/ER Draft Date of Exam:02/05/23 CT ANGIO CHEST W(R/O TAD) INDICATION: Differential blood pressures in both arms, evaluate for dissection. TECHNIQUE: CTA chest obtained with pre- and post-IV contrast images, followed by MIP reconstructions. All CT scans use one or more of the following dose optimizing techniques: automated exposure control, MA and/or KvP adjustment based on patient size and exam type or iterative reconstruction. COMPARISON: There is no prior study for comparison. FINDINGS: The thoracic aorta shows no evidence of aneurysm or dissection. Great vessel origins are patent and without stenosis. Heart is borderline enlarged. Pulmonary parenchymal vessels are well opacified with no CT evidence of pulmonary emboli. There are no enlarged mediastinal or hilar nodes or axillary nodes. There is no pleural or pericardial fluid. Visualized portions of the upper abdomen demonstrate fatty infiltration of the liver without focal lesion. Lung parenchymal windows demonstrate no pulmonary parenchymal infiltrates or nodules. IMPRESSION: Negative CTA of the chest. Dictated on workstation # [id number] Dict: 02/05/23 1657 Trans: 02/05/23 1704 [id number] Interpreted by: VALENTINA SMITH MD Electronically signed by: Departure Communication (Admissions) Time/Spoke to Consulting Phy: 13:33 Dr. Finnegan, luster repairer, called for consultation. See progress note. Impression Primary Impression: Hypertension Disposition: HOME, SELF-CARE Condition: Stable Departure-Patient Inst. Decision time for Depature: 18:17 Referrals: JOSELUIS FINNEGAN MD NO,LOCAL PHYSICIAN (PCP) Primary Care Physician Patient Instructions: High Blood Pressure ED Add. Discharge Instructions: Take medications as prescribed. Follow-up with cardiology, call them on Wednesday to schedule appointment. Monitor your blood pressure at home, keep a log and take with you to cardiology. Return for severe headache, blurry vision, dizziness, chest pain, or any other new, concerning, or worsening symptoms. All discharge instructions reviewed with patient and/or family. Voiced understanding. Scripts Losartan Potassium (Losartan Potassium) 100 Mg Tablet 100 MG PO DAILY for 30 Days, #30 TAB 0 Refills Prov: AZRA GALLEGOS APRN 02/05/23 Metoprolol Succinate (Metoprolol Succinate) 25 Mg Tab.er.24h 25 MG PO DAILY for 30 Days, #30 TAB 0 Refills Prov: AZRA GALLEGOS APRN 02/05/23 AZRA GALLEGOS APRN Feb 05, 2023 11:59
[2023-02-05 12:05] LABS: PROTHROMBIN TIME PATIENT 13.2 SEC (12.2-14.7)
--- NOTE | 2023-02-05 12:06 | Diagnostic Imaging Report ---
INDICATION: Hypertension and chest pain. Frontal chest obtained at 12:02 p.m. and compared with 01/04/2020 Heart and mediastinal silhouette are normal in appearance. The lungs are clear. There is no pneumothorax or pleural fluid. IMPRESSION: Negative chest. Dictated by: Dictated on workstation # [id number]
[2023-02-05 12:08] LABS: POTASSIUM 3.8 MMOL/L (3.6-5.0)
[2023-02-05 12:09] LABS: CALCIUM 9.2 MG/DL (8.5-10.1)
[2023-02-05 12:10] LABS: TOTAL PROTEIN 7.3 GM/DL (6.4-8.2)
[2023-02-05 12:12] LABS: BILIRUBIN,TOTAL 0.6 MG/DL (0.1-1.0)
[2023-02-05 12:14] LABS: CREATININE SERUM 0.87 MG/DL (0.60-1.30)
[2023-02-05 12:17] LABS: MAGNESIUM 2.1 MG/DL (1.6-2.4)
[2023-02-05] MEDS ORDERED: meTOprolol 5 MG/5 ML (LOPRESSOR) VIAL IV ONE ×2 (13:45→17:30)
[2023-02-05] MEDS ORDERED: HOLD METFORMIN - RECEIVED CONTRAST 20 ML VIAL IV SCH (14:45)
[2023-02-05] MEDS ORDERED: IOHEXOL 350 MG/ML 100 ML (OMNIPAQUE 350) VIAL IV ONE ×2 (14:45→16:15)
[2023-02-05] MEDS ORDERED: NS 100 ML (IVPB) BAG IV ONE ×2 (14:45→16:15)
--- NOTE | 2023-02-05 15:12 | Diagnostic Imaging Report ---
INDICATION: Chest pain. Asymmetric blood pressure, I am unclear which side is higher. FINDINGS: The visible aortic arch appeared normal. The branching pattern of the great vessels were normal. The bilateral subclavian arteries patent. The cervical and intradural vertebral arteries are patent. The bilateral common carotids patent. The carotid bulbs and bifurcations patent. The major external carotid branches are patent. The cervical internal carotid branches are patent. Images of the head are also included showing the intrathecal vertebral arteries and their primary branches patent. The basilar and bilateral READINESS PARAPROFESSIONAL segments are widely patent. The intracranial ICAs, the anterior and middle cerebral arteries as well as their primary branches are all patent. No large vessel occlusion, thrombus, aneurysm or vascular malformation. IMPRESSION: Unremarkable CT angiographic study of the neck and head Dictated by: Dictated on workstation # [id number]
--- NOTE | 2023-02-05 17:04 | Diagnostic Imaging Report ---
INDICATION: Differential blood pressures in both arms, evaluate for dissection. TECHNIQUE: CTA chest obtained with pre- and post-IV contrast images, followed by MIP reconstructions. All CT scans use one or more of the following dose optimizing techniques: automated exposure control, MA and/or KvP adjustment based on patient size and exam type or iterative reconstruction. COMPARISON: There is no prior study for comparison. FINDINGS: The thoracic aorta shows no evidence of aneurysm or dissection. Great vessel origins are patent and without stenosis. Heart is borderline enlarged. Pulmonary parenchymal vessels are well opacified with no CT evidence of pulmonary emboli. There are no enlarged mediastinal or hilar nodes or axillary nodes. There is no pleural or pericardial fluid. Visualized portions of the upper abdomen demonstrate fatty infiltration of the liver without focal lesion. Lung parenchymal windows demonstrate no pulmonary parenchymal infiltrates or nodules. IMPRESSION: Negative CTA of the chest. Dictated on workstation # [id number]
[2023-02-05] MEDS ORDERED: LOSARTAN 50 MG (COZAAR) TAB PO ONE (17:15)
[2023-02-05] MEDS ORDERED: LOSARTAN 100 MG (COZAAR) TABLET PO ONE (17:30)
[2023-02-05] MEDS ORDERED: LOSA100T57 PO (18:19)
[2023-02-05] MEDS ORDERED: MTP25TSR PO (18:19)
[2023-02-05 18:26] VITALS: BP 157/103
== END 2023-02-05 18:26 | disposition home or self-care (01) ==
LOC: EDUNIT# 11:23 → ER 11:26
DX: I10 Essential (primary) hypertension (principal); K76.0 Fatty (change of) liver, not elsewhere classified; G47.30 Sleep apnea, unspecified; Z28.310 Unvaccinated for COVID-19; Z99.89 Dependence on other enabling machines and devices
CPT/HCPCS: 36415; 70498; 71045; 71275; 80053; 83735; 84484; 85025; 85610; 85730; 93005; 93041

== ENCOUNTER → 2023-03-24 | Outpatient (CLI) | payer BC ==
[~2023-03-24] MED LIST changes: +CATHETER FLUSH 10 ML SYR IVP PRN; +LOSA100T57 PO; +MTP25TSR PO
[2023-03-24 13:12] VITALS: BP 165/92
--- NOTE | 2023-03-24 15:39 | Cardiology Stress Test Report ---
Stress Test Report Date of Procedure/Referring: Date of Procedure: March 24, 2023 PCP No,Local Physician Admitting Physician Admitting Physician: Attending Physician: Osiris Javier Indications: CP Baseline Heart Rate: 66 Baseline Blood Pressure: Blood Pressure Systolic: 165 Blood Pressure Diastolic: 92 Vital Signs Date Time Temp Pulse Resp B/P (MAP) Pulse Ox O2 Delivery O2 Flow Rate FiO2 03/24/23 13:12 92 16 165/92 (116) 97 Room Air Baseline Vital Signs Vital Signs Date Time Temp Pulse Resp B/P (MAP) Pulse Ox O2 Delivery O2 Flow Rate FiO2 03/24/23 13:12 92 16 165/92 (116) 97 Room Air Baseline EKG: Baseline EKG: NSR Summary: After explaining the procedure and details to the patient, he signed the consent and was brought to the stress nuclear laboratory. Patient exercised on standard Nicolás protocol, EKG, heart rate and blood pressure were monitored continuously, resting and stress doses of radio tracer were injected, imaging was acquired and reviewed in the short axis, horizontal long axis and vertical long axis views Patient was able to exercise for a total of 11 minutes on Nicolás protocol, METs 12.5 Maximum heart rate 152 Maximum blood pressure 206/99 Stress EKG, Minimal nondiagnostic changes Recovery EKG, Return to baseline TID: 0.95 SSS: 3 SDS: 3 EF: 56 Conclusion: Excellent exercise tolerance for 11 minutes on standard Nicolás protocol, 12.5 METS achieving 87% of maximum expected heart rate Appropriate heart rate response to exercise with hypertensive response to exercise with peak blood pressure 206/99 return to baseline during recovery Nondiagnostic EKG changes with exercise return to baseline during recovery Small apical defect with no significant ischemia or infarction on SPECT images Normal left ventricular size, ejection fraction 56% JOSELUIS SNOW MD March 24, 2023 15:39
== END ==
LOC: CARD 11:23
PROVIDERS: ATTEND Physician Assistant
DX: I25.10 Atherosclerotic heart disease of native coronary artery without angina pectoris (principal); I10 Essential (primary) hypertension
CPT/HCPCS: 78452; 93017; A9502; C8929; 93306

== ENCOUNTER 2023-08-25 05:55 | Outpatient (CLI) | payer BC ==
[~2023-08-25] VITALS: Ht 180.3 cm; Wt 112.0 kg
[~2023-08-25 05:55] MED LIST changes: -CATHETER FLUSH 10 ML SYR IVP PRN; -LOSA100T57 PO; +LOSA100T58 PO
== END 2023-08-25 09:05 | disposition home or self-care (01) ==
LOC: PREOP 05:55
PROVIDERS: ATTEND Surgery
DX: Z01.818 Encounter for other preprocedural examination (principal)

== ENCOUNTER 2023-08-30 09:12 | Day surgery (SDC) | payer BC ==
[~2023-08-30] VITALS: Ht 180.3 cm; Wt 112.0 kg
[2023-08-30] MEDS ORDERED: LACTATED RINGERS 1,000 ML 1,000 ML IV STA (09:24)
[2023-08-30 09:29] VITALS: BP 149/91
[2023-08-30] MEDS ORDERED: HURRICAINE EXT TUBE (BENZOCAINE) XX PRN (09:30)
--- NOTE | 2023-08-30 09:59 | Progress Note-Pre Operative ---
Pre-Operative Progress Note Date of Available H&P: Aug 19, 2023 Date H&P Reviewed: Aug 30, 2023 Time H&P Reviewed: 09:57 History & Physical: H&P Reviewed, Patient Examed, No changes noted Pre-Operative Diagnosis: Hematochezia, Epigastric pain, unintentional weight loss ROSETTA SIN DO Aug 30, 2023 09:59
[2023-08-30] MEDS ORDERED: MIDAZOLAM INJ 2 MG/2 ML VIAL ONE (11:10)
[2023-08-30] MEDS ORDERED: proPOfol INJECTION 200 MG/20 ML VIAL IV ONE (11:37)
[2023-08-30 11:50] VITALS: BP 124/74
--- NOTE | 2023-08-30 11:54 | Progress Note-Post Operative ---
Post-Operative Progess Note Surgeon (s)/Linux Kernel Developer (s) Surgeon ROSETTA SIN DO Linux Kernel Developer: SHUKRI GrandeII Pre-Operative Diagnosis Hematochezia, Epigastric pain, unintentional weight loss Post-Operative Diagnosis Gastritis Small sliding hiatal hernia esophagitis Polyps AVM Internal hemorrhoids Procedure & Operative Findings Date of Procedure 08/30/23 Procedure Performed/Findings EGD with biopsy Colonoscopy with snare polypectomy Colonoscopy with hot biopsy PROCEDURE NOTE: After informed consent was obtained, the patient was brought to the endoscopy suite, placed in bed in left lateral decubitus position. He was administered IV sedation by the SKEIN INSPECTOR who then monitored vitals the entire time, heart rate, blood pressure and pulse ox and the scope was inserted down the mouth through the esophagus into the stomach. On the way down, noted some mild esophagitis, took a picture, pushed into the stomach, pushed past the antrum into the duodenum. Duodenum looked good. Pulled back, noted some gastritis and did a biopsy of the antrum. Retroflexed the scope, saw a small sliding hiatal hernia, took a picture of this and then pulled the scope into the GE junction. I then took a picture and did a biopsy of the GE junction. Pushed the scope back into the stomach, suctioned all the air out of the stomach. At this point pulled the scope up the esophagus and out the mouth. Switched camera, switched gloves, went down below and started the colonoscopy. On the way in, in the Transverse colon I found two polyps; one was small and flat and the other was larger and pedunculated. I did hot biopys in two bites to remove the flat polyp. I then used the snare to remove the larger polyp. Pushed all the way to about 130 cm and pushed into the cecum, took a picture of appendiceal orifice and noted the ileocecal valve. Then slowly withdrew the scope insufflating to look circumferentially at the fitzgerald starting in the cecum and up the ascending colon. I found another polyp in Ascending colon and then removed it with the snare. Continued to the hepatic flexure, then down the transverse colon to the splenic flexure, into the descending colon down in the sigmoid and then into the rectal vault and retroflexed the scope. Took a picture of the internal hemorrhoids. I also noted large veins and an AVM and took a picture of them. I did not see any other cause for his hematochezia. The patient tolerated the procedure and he recovered in the endoscopy suite. Recommended for repeat colonoscopy in 5 years Anesthesia Type IV sedation by Anesthesia Estimated Blood Loss Estimated blood loss (mL): scant Specimens/Packing Specimens Removed antral bx body of stomach bx GE jxn bx x 2 Transverse colon polyp x 2 Asc colon polyp ROSETTA SIN DO Aug 30, 2023 11:54
[2023-08-30 11:55] VITALS: BP 128/80
--- NOTE | 2023-08-30 11:56 | Endoscopy Discharge Instruct ---
Endo Procedure/Findings Findings 1.: Gastritis 2.: Hiatal Hernia 3.: Polyp 4.: Internal Hemorrhoids, Vascular Ectasias Discharge Instructions - Activity: You might feel a little sleepy until tomorrow. This is due to the med icine you received to relax you. Until tomorrow, you should: NOT drive a car, operate machinery or power tools. NOT drink any alcoholic beverages. NOT make any important decisions or sign importortant papers. Do not return to work until tomorrow, unless otherwise instructed. Resume previous activities tomorrow. Diet: Start by taking liquids. If you tolerate liquids, advance to solid food. 1.: EGD in 3 years 2.: Colonscopy in 5 years Notify Physician - If you experience excessive bleeding, unusual abdominal pain, fever, or chest pain, contact your doctor immediately. Follow-Up: Other Follow up in my office in one week ROSETTA SIN DO Aug 30, 2023 11:56
[2023-08-30 12:00] VITALS: BP 128/80
[2023-08-30 12:18] VITALS: BP 128/80
--- NOTE | 2023-08-30 15:02 | Anesthesia-General Post-Op ---
MAC Patient Condition Mental Status/LOC: Same as Preop Cardiovascular: Satisfactory Nausea/Vomiting: Absent Respiratory: Satisfactory Pain: Controlled Complications: Absent Post Op Complications Complications None Follow Up Care/Instructions Patient Instructions None needed. Anesthesiology Discharge Order Discharge Order Patient was doing well after the procedure with no complaints, stable vital signs, no apparent adverse anesthesia problems. No complications reported per nursing. JORGE LUIS LANE DO Aug 30, 2023 15:02
== END 2023-08-30 12:30 | disposition home or self-care (01) ==
LOC: ENDO 09:12
PROVIDERS: ATTEND Surgery
DX: K29.70 Gastritis, unspecified, without bleeding (principal); D12.3 Benign neoplasm of transverse colon; D12.2 Benign neoplasm of ascending colon; K20.90 Esophagitis, unspecified without bleeding; K92.0 Hematemesis; K44.9 Diaphragmatic hernia without obstruction or gangrene; K64.8 Other hemorrhoids; K55.20 Angiodysplasia of colon without hemorrhage; R63.4 Abnormal weight loss; E66.9 Obesity, unspecified; G47.33 Obstructive sleep apnea (adult) (pediatric); Z99.81 Dependence on supplemental oxygen; Z68.34 Body mass index [BMI] 34.0-34.9, adult; Z28.310 Unvaccinated for COVID-19